=== PATIENT | female | born 1945 | race Caucasian/White ===

== ENCOUNTER 2020-03-08 09:31 | Inpatient (IN) | payer MEDICARE ==
--- NOTE | 2020-03-08 09:58 | ED ---
Abdominal Pain HPI - General Source: patient Mode of arrival: wheelchair Limitations: physical limitation <Aron Jesus - Last Filed: 03/08/20 12:08> <Maciel Fishman - Last Filed: 03/08/20 12:19> - General Chief Complaint: Abdominal Pain Stated Complaint: abd pain Time Seen by Provider: 03/08/20 09:57 - History of Present Illness Initial Comments: Patient is 74-year-old female with history of A. fib and currently on eliquist presenting to emergency Department with a chief complaint of abdominal pain. Patient reports the pain is postprandial and started about 2-3 days ago with gradual increase in severity. States the pain is sharp and is exacerbated with any movement. States the pain is located in the right upper quadrant region. She does report nausea but denies any vomiting. Does report several days of diarrhea that is nonbloody. She does report having chills today. Denies previous abdominal surgeries. Denies any vaginal or urinary symptoms. Denies hematuria, hematochezia or melena. Denies any chest pain or shortness of breath or back pain. (Aron Jesus) - Related Data Home Medications Medication Instructions Recorded Confirmed Apixaban [Eliquis] 5 mg PO BID 03/08/20 03/08/20 Aspirin 81 mg PO DAILY@1200 03/08/20 03/08/20 Metoprolol Succinate (ER) [Toprol 100 mg PO DAILY@1200 03/08/20 03/08/20 XL] Spironolactone [Aldactone] 25 mg PO DAILY@1200 03/08/20 03/08/20 lisinopriL [Zestril] 2.5 mg PO QAM 03/08/20 03/08/20 Allergies Allergy/AdvReac Type Severity Reaction Status Date / Time No Known Allergies Allergy Verified 03/08/20 12:13 Review of Systems ROS Other: All systems not noted in ROS Statement are negative. <Aron Jesus - Last Filed: 03/08/20 12:08> ROS Other: All systems not noted in ROS Statement are negative. <Maciel Fishman - Last Filed: 03/08/20 12:19> ROS Statement: Those systems with pertinent positive or pertinent negative responses have been documented in the HPI. Past Medical History Past Medical History: Atrial Fibrillation, Coronary Artery Disease (CAD), Hyperlipidemia, Hypertension, Myocardial Infarction ([place]) Additional Past Medical History / Comment(s): , murmur years ago, ulcerative colitis, dificulty swallowing large pills. History of Any Multi-Drug Resistant Organisms: None Reported Past Surgical History: Coronary Bypass/CABG, Tubal Ligation Past Anesthesia/Blood Transfusion Reactions: No Reported Reaction Past Psychological History: No Psychological Hx Reported Smoking Status: Never smoker Past Alcohol Use History: Occasional Past Drug Use History: None Reported - Past Family History Mother Family Medical History: Dementia Father Family Medical History: Myocardial Infarction ([place]) <Aron Jesus - Last Filed: 03/08/20 12:08> General Exam Limitations: physical limitation General appearance: alert, in no apparent distress Head exam: Present: atraumatic, normocephalic, normal inspection Eye exam: Present: normal appearance, PERRL, EOMI Pupils: Present: normal accommodation ENT exam: Present: normal exam, normal oropharynx, mucous membranes moist, TM's normal bilaterally, normal external ear exam Neck exam: Present: normal inspection, full ROM. Absent: tenderness Respiratory exam: Present: normal lung sounds bilaterally. Absent: respiratory distress, wheezes, rales Cardiovascular Exam: Present: regular rate, normal rhythm, normal heart sounds GI/Abdominal exam: Present: soft, tenderness (Positive Villaseñor. Right upper quadrant.), normal bowel sounds. Absent: distended, guarding, rebound, rigid Extremities exam: Present: normal inspection, full ROM, normal capillary refill, other (+2 ulnar and radial pulses bilaterally.). Absent: tenderness, pedal edema, joint swelling, calf tenderness Back exam: Present: normal inspection, full ROM. Absent: tenderness, CVA tenderness (R), CVA tenderness (L) Neurological exam: Present: alert, oriented X3 Psychiatric exam: Present: normal affect, normal mood. Absent: agitated Skin exam: Present: warm, dry, intact, normal color <Aron Jesus Last Filed: 03/08/20 12:08> Course Vital Signs 03/08/20 03/08/20 03/08/20 09:48 10:51 12:00 Temperature 102.4 F H 99.7 F H Pulse Rate 133 H 113 H 105 H Respiratory 18 16 16 Rate Blood Pressure 157/82 129/71 92/64 O2 Sat by Pulse 95 95 98 Oximetry Medical Decision Making - Lab Data Result diagrams: 03/08/20 10:14 03/08/20 10:14 <Aron Jesus - Last Filed: 03/08/20 12:08> - Lab Data Result diagrams: 03/08/20 10:14 03/08/20 10:14 <Maciel Fishman - Last Filed: 03/08/20 12:19> - Medical Decision Making Patient is a 74-year-old female presenting to the emergency department with a chief complaint of abdominal pain. Patient is currently on blood thinners for A. fib. On initial evaluation, patient does have right-sided abdominal tenderness mostly localized to the right upper quadrant region with a positive Villaseñor sign. She has been having postprandial pain for the past 2-3 days with gradual increasing severity. Clinically this appears to be acute cholecystitis. CBC reveals leukocytosis at 24k. EKG shows A. fib with RVR. Patient has not taken her morning dose of metoprolol. Patient will take it orally here. Patient was also given antipyretics, IV fluids, antiemetics and analgesia. Patient did have confirmed cholecystitis on ultrasound. Patient will be started on Zosyn and vancomycin. Blood thinners on hold. Dr. Kolton alonso admit to medicine and she will be on consult, as well as cardiology. Case discussed with Dr. Fishman. Admitting physician is Dr Lucian Salas on consult General surgery on consult (Aron Jesus) Patient reevaluated and reexamined by myself, Dr. Fishman. I do agree with the findings. This includes diagnostic interpretation and treatment plan. Patient resting comfortably in bed. Patient does have moderate tenderness right upper quadrant. Case was discussed with Dr. wallis. Case also discussed with Dr. Bergeron. Patient will be admitted, primary care physician Dr. Cisneros. Case was also later discussed with Dr. Segura. (Maciel Fishman) - Lab Data Lab Results 03/08/20 03/08/20 03/08/20 Range/Units 10:14 10:14 10:14 WBC 24.4 H (3.8-10.6) k/uL RBC 5.14 (3.80-5.40) m/uL Hgb 15.7 (11.4-16.0) gm/dL Hct 48.0 H (34.0-46.0) % MCV 93.4 (80.0-100.0) fL MCH 30.6 (25.0-35.0) pg MCHC 32.7 (31.0-37.0) g/dL RDW 11.8 (11.5-15.5) % Plt Count 340 (150-450) k/uL Neutrophils % 89 % Lymphocytes % 3 % Monocytes % 6 % Eosinophils % 1 % Basophils % 0 % Neutrophils # 21.7 H (1.3-7.7) k/uL Lymphocytes # 0.6 L (1.0-4.8) k/uL Monocytes # 1.5 H (0-1.0) k/uL Eosinophils # 0.4 (0-0.7) k/uL Basophils # 0.1 (0-0.2) k/uL Sodium 133 L (137-145) mmol/L Potassium 4.7 (3.5-5.1) mmol/L Chloride 97 L (98-107) mmol/L Carbon Dioxide 24 (22-30) mmol/L Anion Gap 12 mmol/L BUN 27 H (7-17) mg/dL Creatinine 0.71 (0.52-1.04) mg/dL Est GFR (CKD-EPI)AfAm >90 (>60 ml/min/1.73 sqM) Est GFR (CKD-EPI)NonAf 84 (>60 ml/min/1.73 sqM) Glucose 165 H (74-99) mg/dL Plasma Lactic Acid Ariel 1.9 (0.7-2.0) mmol/L Calcium 10.1 (8.4-10.2) mg/dL Total Bilirubin 1.3 (0.2-1.3) mg/dL AST 27 (14-36) U/L ALT 15 (4-34) U/L Alkaline Phosphatase 92 (38-126) U/L Troponin I (0.000-0.034) ng/mL Total Protein 8.5 H (6.3-8.2) g/dL Albumin 4.7 (3.5-5.0) g/dL Lipase 66 (23-300) U/L 10/10/20 Range/Units 10:14 WBC (3.8-10.6) k/uL RBC (3.80-5.40) m/uL Hgb (11.4-16.0) gm/dL Hct (34.0-46.0) % MCV (80.0-100.0) fL MCH (25.0-35.0) pg MCHC (31.0-37.0) g/dL RDW (11.5-15.5) % Plt Count (150-450) k/uL Neutrophils % % Lymphocytes % % Monocytes % % Eosinophils % % Basophils % % Neutrophils # (1.3-7.7) k/uL Lymphocytes # (1.0-4.8) k/uL Monocytes # (0-1.0) k/uL Eosinophils # (0-0.7) k/uL Basophils # (0-0.2) k/uL Sodium (137-145) mmol/L Potassium (3.5-5.1) mmol/L Chloride (98-107) mmol/L Carbon Dioxide (22-30) mmol/L Anion Gap mmol/L BUN (7-17) mg/dL Creatinine (0.52-1.04) mg/dL Est GFR (CKD-EPI)AfAm (>60 ml/min/1.73 sqM) Est GFR (CKD-EPI)NonAf (>60 ml/min/1.73 sqM) Glucose (74-99) mg/dL Plasma Lactic Acid Ariel (0.7-2.0) mmol/L Calcium (8.4-10.2) mg/dL Total Bilirubin (0.2-1.3) mg/dL AST (14-36) U/L ALT (4-34) U/L Alkaline Phosphatase (38-126) U/L Troponin I <0.012 (0.000-0.034) ng/mL Total Protein (6.3-8.2) g/dL Albumin (3.5-5.0) g/dL Lipase (23-300) U/L - EKG Data EKG Comments: A. fib with RVR. Ventricular rate 113, QRS 82, QTC 331. (Aron Jesus) Disposition Is patient prescribed a controlled substance at d/c from ED?: No Time of Disposition: 11:41 <Aron Jesus - Last Filed: 03/08/20 12:08> <Maciel Fishman - Last Filed: 03/08/20 12:19> Clinical Impression: Abdominal pain, Atrial fibrillation with RVR, Acute cholecystitis Disposition: ADMITTED IP TO THIS HOSP Condition: Good
[2020-03-08] MEDS ORDERED: HYDROmorphone 0.5 MG/0.5 ML SYRINGE IVP STA (10:07)
[2020-03-08] MEDS ORDERED: SODIUM CHLORIDE 0.9% 1,000 ML IV STA (10:07)
[2020-03-08] MEDS ORDERED: METOCLOPRAMIDE 5 MG/ML 2 ML VIAL IVP STA (10:07)
[2020-03-08] MEDS ORDERED: PANTOPRAZOLE 40 MG/10 ML VIAL IVP STA (10:07)
[2020-03-08] MEDS ORDERED: ACETAMINOPHEN TAB 500 MG TAB PO STA (10:08)
[2020-03-08 10:22] LABS: Basophils # (A) 0.1 k/uL (0-0.2); Basophils % (A) 0 %; Eosinophils # (A) 0.4 k/uL (0-0.7); Eosinophils % (A) 1 %; HGB 15.7 gm/dL (11.4-16.0); Lymphocytes # (A) 0.6 k/uL (1.0-4.8); Lymphocytes % (A) 3 %; MCH 30.6 pg (25.0-35.0); MCHC 32.7 g/dL (31.0-37.0); MCV 93.4 fL (80.0-100.0); Mean Platelet Volume 7.3; Monocytes # (A) 1.5 k/uL (0-1.0); Monocytes % (A) 6 %; Neutrophils # (A) 21.7 k/uL (1.3-7.7); Neutrophils % (A) 89 %; Platelet Count 340 k/uL (150-450); RBC 5.14 m/uL (3.80-5.40); RDW 11.8 % (11.5-15.5); WBC 24.4 k/uL (3.8-10.6)
[2020-03-08 10:32] LABS: ALT 15 U/L (4-34); AST 27 U/L (14-36); African American GFR (CKD) >90 (>60 ml/min/1.73 sqM); Albumin 4.7 g/dL (3.5-5.0); Alkaline Phosphatase 92 U/L (38-126); Anion Gap 12 mmol/L; Blood Urea Nitrogen 27 mg/dL (7-17); Calcium 10.1 mg/dL (8.4-10.2); Carbon Dioxide 24 mmol/L (22-30); Chloride 97 mmol/L (98-107); Glucose 165 mg/dL (74-99); Non-African American GFR(CKD) 84 (>60 ml/min/1.73 sqM); Potassium 4.7 mmol/L (3.5-5.1); Sodium 133 mmol/L (137-145); Total Bilirubin 1.3 mg/dL (0.2-1.3); Total Protein 8.5 g/dL (6.3-8.2)
--- NOTE | 2020-03-08 11:25 | US ---
EXAMINATION TYPE: US abdomen limited DATE OF EXAM: 03/08/2020 COMPARISON: NONE CLINICAL HISTORY: concern for acute fermín. EXAM MEASUREMENTS: Liver Length: 13.0 cm Gallbladder Wall: 0.4 cm CBD: 0.6 cm Right Kidney: 9.4 x 3.7 x 4.1 cm Pancreas: not visualized due to overlying bowel gas Liver: wnl Gallbladder: multiple layering stones with shadowing Evidence for sonographic Villaseñor's sign: Yes CBD: measures 0.6 cm Right Kidney: No hydronephrosis or masses seen IMPRESSION: 1. Cholelithiasis with mild gallbladder wall thickening, correlate for cholecystitis. Note is made to CBD does measure at the upper limits of normal. Correlate clinically.
[2020-03-08] MEDS ORDERED: VANCOMYCIN IV PER PHARMACY 1 EACH MISC MISCELLANE PRN (11:37)
[2020-03-08] MEDS ORDERED: PIPERACILLIN-TAZOBACTAM 3.375 GM in SODIUM CHLORIDE 0.9% 100 ML IVPB STA (11:37)
[2020-03-08] MEDS ORDERED: HYDROmorphone 1 MG/ML 1 ML SYRINGE IVP PRN (11:50)
[2020-03-08] MEDS ORDERED: NALOXONE 0.4 MG/ML 1 ML VIAL IV PRN (11:50)
[2020-03-08] MEDS ORDERED: LORazepam 2 MG/ML INJ IV PRN (11:50)
[2020-03-08] MEDS ORDERED: ACETAMINOPHEN TAB 325 MG TAB PO PRN (11:50)
[2020-03-08] MEDS ORDERED: IBUPROFEN 400 MG TAB PO PRN (11:50)
[2020-03-08] MEDS ORDERED: VANCOMYCIN 1,250 MG in SODIUM CHLORIDE 0.9% 250 ML IVPB ONE (12:00)
--- NOTE | 2020-03-08 12:09 | P.PN ---
Progress Note - Text Progress Note Date: 03/08/20 Notified regarding the patient's results of ultrasound. I personally reviewed her gallbladder ultrasound with findings of multiple gallstones and mild thickness of the gallbladder wall. With the patient's significant cardiac history of congestive heart failure and cardiomyopathy, recommend medicine admission with cardiology consultation for cardiac clearance prior to any surgery. In the interim, bridge with IV antibiotics.
[2020-03-08] MEDS: SODIUM CHLORIDE 0.9% 1,000 ML IV SCH ×2 (12:40→20:53)
--- NOTE | 2020-03-08 12:47 | P.CRDCN ---
History of Present Illness Consult date: 03/08/20 Consult reason: atrial fibrillation (w RVR) History of present illness: History of present illness: This is A 74-year-old female patient of Dr. ITZEL Champion with past medical history of triple-vessel coronary artery disease status post quadruple CABG in 2016, moderate mitral valve regurgitation, mild aortic stenosis, chronic systolic heart failure, non-Q [place], Paroxysmal atrial fibrillation, Hypertension, hyperlipidemia,right internal carotid artery stenosis of 50-69%, remote history of tobacco use. Patient had onset of right upper quadrant abdominal pain with nausea 2 days ago. She denies any chest pain or discomfort, denies shortness of breath. Patient presented to [facility] emergency center. Patient was found to have a temperature of 102.4, heart rate 133, blood pressure 157/82, p ulse ox 95% on room air. W BC 24.4, hemoglobin 15.7, platelet count 340. Sodium 133, potassium 4.7, chloride 97, CO2 24, BUN 27 creatinine 0.71, blood sugar 165. Lactic acid 1.9. Liver function tests normal. Troponin 0.012. EKG atrial fibrillation with RVR at rate of 113. Abdominal ultrasound reveals cholelithiasis with mild gallbladder wall thickening, correlate for cholecystitis. CBD at the upper limits of normal. Patient admitted to the hospital and consult requested regarding atrial fibrillation and RVR. Review Of Systems: Constitutional: No fever, no chills. No weakness, fatigue or lethargy. EENT: No headache. No dizziness. Lungs: No shortness of breath, cough, no sputum production. No wheezing. Cardiovascular: No chest pain, no lower extremity edema. No palpitations. No paroxysmal nocturnal dyspnea. No orthopnea. No lightheadedness or dizziness. No syncopal episodes. Abdominal: Reports abdominal pain. Reports nausea, vomiting. No diarrhea. No constipation. No bloody or tarry stools.. No loss of appetite. Genitourinary: No dysuria.. No urinary retention. Musculoskeletal: No myalgias. No muscle weakness, no gait dysfunction, no fr equent falls. No back pain. No neck pain. Integumentary: No wounds, no lesions. No rash or pruritus. No unusual bruising. Neurologic: No aphasia. No facial droop. No change in mentation. No head injury. No headache. No paralysis. No paresthesia. Physical examination: Gen: This is a 74-year-old female. Patient is resting bed appears to be comfortable. VS: 99.7, heart rate 105,Blood pressure 92/64, pulse ox 98% on room air HEENT: Head is atraumatic, normocephalic. Pupils equal, round. Sclerae is anicteric. NECK: Supple. No JVD. No lymphadenopathy. No thyromegaly. LUNGS: Clear to auscultation. No wheezes or rhonchi. No intercostal retractions. HEART: Regular rate and rhythm. No murmur. ABDOMEN: Soft. Bowel sounds are present. No masses. No tenderness. EXTREMITIES: No pedal edema. No calf tenderness. Dorsalis pedis +2 bilaterally. NEUROLOGICAL: Patient is awake, alert and oriented x3. Cranial nerves 2 through 12 are grossly intact. Assessment: Atrial fibrillation with RVR, moderate rate control Paroxysmal atrial fibrillation History of coronary artery disease status post quadruple CABG Valvular heart disease with moderate mitral valve regurgitation and mild aortic stenosis Chronic systolic heart failure Hypertension Hyperlipidemia Right internal carotid artery stenosis Remote history of tobacco use Plan: Patient is a reasonable risk for cardiac event during surgery. She has had for months with no exercise induced angina or shortness of breath. Would like to get her heart rate under improved control prior to surgery. Resume patient on Toprol-XL 100 mg daily Resume Aspirin 81 mg. Hold lisinopril 2.5 mg daily and Aldactone 25 daily due to soft blood pressure Hold eliquis 5 mg twice daily for cholecystectomy Obtain 2-D echocardiogram and Doppler study to assess cardiac structure and function Further recommendations to follow based upon clinical course Thank you kindly for this consultation. Nurse practitioner note has been reviewed, I agree with documented findings and plan of care. Patient was seen and examined. Past Medical History Past Medical History: Atrial Fibrillation, Coronary Artery Disease (CAD), Hyperlipidemia, Hypertension, Myocardial Infarction ([place]) Additional Past Medical History / Comment(s): , murmur years ago, ulcerative colitis, dificulty swallowing large pills. History of Any Multi-Drug Resistant Organisms: None Reported Past Surgical History: Coronary Bypass/CABG, Tubal Ligation Past Anesthesia/Blood Transfusion Reactions: No Reported Reaction Past Psychological History: No Psychological Hx Reported Smoking Status: Never smoker Past Alcohol Use History: Occasional Past Drug Use History: None Reported - Past Family History Mother Family Medical History: Dementia Father Family Medical History: Myocardial Infarction ([place]) Medications and Allergies Home Medications Medication Instructions Recorded Confirmed Type Apixaban [Eliquis] 5 mg PO BID 03/08/20 03/08/20 History Aspirin 81 mg PO DAILY@1200 03/08/20 03/08/20 History Metoprolol Succinate (ER) [Toprol 100 mg PO DAILY@1200 03/08/20 03/08/20 History XL] Spironolactone [Aldactone] 25 mg PO DAILY@1200 03/08/20 03/08/20 History lisinopriL [Zestril] 2.5 mg PO QAM 03/08/20 03/08/20 History Allergies Allergy/AdvReac Type Severity Reaction Status Date / Time No Known Allergies Allergy Verified 03/08/20 12:13 Physical Exam Vitals: Vital Signs Temp Pulse Resp BP Pulse Ox 03/08/20 12:00 99.7 F H 105 H 16 92/64 98 03/08/20 10:51 113 H 16 129/71 95 03/08/20 09:48 102.4 F H 133 H 18 157/82 95 Intake and Output 03/07/20 03/08/20 03/08/20 22:59 06:59 14:59 Other: Weight 61.235 kg Results 03/08/20 10:14 03/08/20 10:14 Cardiac Enzymes 03/08/20 03/08/20 Range/Units 10:14 10:14 AST 27 (14-36) U/L Troponin I <0.012 (0.000-0.034) ng/mL CBC 03/08/20 Range/Units 10:14 WBC 24.4 H (3.8-10.6) k/uL RBC 5.14 (3.80-5.40) m/uL Hgb 15.7 (11.4-16.0) gm/dL Hct 48.0 H (34.0-46.0) % Plt Count 340 (150-450) k/uL Comprehensive Metabolic Panel 03/08/20 Range/Units 10:14 Sodium 133 L (137-145) mmol/L Potassium 4.7 (3.5-5.1) mmol/L Chloride 97 L (98-107) mmol/L Carbon Dioxide 24 (22-30) mmol/L BUN 27 H (7-17) mg/dL Creatinine 0.71 (0.52-1.04) mg/dL Glucose 165 H (74-99) mg/dL Calcium 10.1 (8.4-10.2) mg/dL AST 27 (14-36) U/L ALT 15 (4-34) U/L Alkaline Phosphatase 92 (38-126) U/L Total Protein 8.5 H (6.3-8.2) g/dL Albumin 4.7 (3.5-5.0) g/dL Current Medications Generic Name Dose Route Start Last Admin Trade Name Freq PRN Reason Stop Dose Admin Acetaminophen 650 mg 03/08/20 11:50 Acetaminophen Tab 325 Mg Tab PO Q6HR PRN Mild Pain or Fever > 100.5 Hydromorphone HCl 0.5 mg 03/08/20 11:50 Hydromorphone 0.5 Mg/0.5 Ml Syringe IVP Q3HR PRN Moderate Pain Hydromorphone HCl 1 mg 03/08/20 11:50 Hydromorphone 1 Mg/Ml 1 Ml Syringe IVP Q3HR PRN Severe Pain Sodium Chloride 1,000 mls @ 130 mls/hr 03/08/20 10:07 03/08/20 10:38 Saline 0.9% IV 03/08/20 17:48 130 mls/hr .[id number] STA Administration Vancomycin HCl 1,250 mg/ 250 mls @ 125 mls/hr 03/08/20 12:00 03/08/20 12:16 Sodium Chloride IVPB 03/08/20 13:59 125 mls/hr ONCE ONE Administration Vancomycin HCl 1,250 mg/ 250 mls @ 125 mls/hr 03/09/20 02:00 Sodium Chloride IVPB Q16H [place] Sodium Chloride 1,000 mls @ 20 mls/hr 03/08/20 12:00 Saline 0.9% IV .Q24H [place] Ibuprofen 400 mg 03/08/20 11:50 Ibuprofen 400 Mg Tab PO Q6HR PRN Mild Pain or Fever > 100.5 Lorazepam 0.5 mg 03/08/20 11:50 Lorazepam 2 Mg/Ml Inj IV Q6HR PRN Anxiety Naloxone HCl 0.2 mg 03/08/20 11:50 Naloxone 0.4 Mg/Ml 1 Ml Vial IV Q2M PRN Opioid Reversal Ondansetron HCl 4 mg 03/08/20 11:50 Ondansetron 4 Mg/2 Ml Vial IVP Q8HR PRN Nausea And Vomiting Intake and Output 03/07/20 03/08/20 03/08/20 22:59 06:59 14:59 Other: Weight 61.235 kg Patient Weight 03/09/20 06:59 Weight 61.235 kg 03/08/20 10:14 03/08/20 10:14
[2020-03-08] MEDS: METOPROLOL SUCCINATE (ER) 100 MG TAB.ER.24H PO SCH (13:01)
[2020-03-08] MEDS: HYDROmorphone 0.5 MG/0.5 ML SYRINGE IVP PRN (15:18)
--- NOTE | 2020-03-08 15:21 | P.GSCN ---
History of Present Illness Consult date: 03/08/20 History of present illness: CHIEF COMPLAINT: Right upper quadrant abdominal pain HISTORY OF PRESENT ILLNESS: The patient is a 74 year old female who comes in with 1 day history of moderate right quadrant abdominal pain after eating ice cream last night. She reports persistent right upper back pain. She reports pre-existing bilateral upper abdominal pain including moderate severe right upper back pain. She has a strong family history of gallbladder disease in her sister including her sister's daughter. She is otherwise very active and on stationary bike at least 15-20 minutes daily. She is on blood thinner Eliquis. Her last dose was yesterday. She denies any pre-existing abdominal surgeries. PAST MEDICAL HISTORY: See list and reviewed. Has ulcerative colitis. History of myocardial infarction. PAST SURGICAL HISTORY: See list and reviewed MEDICATIONS: See list and reviewed ALLERGIES: See list and reviewed SOCIAL HISTORY: See list and reviewed FAMILY HISTORY: See list and reviewed REVIEW OF ORGAN SYSTEMS: CONSTITUTIONAL: No fevers or chills. No recent weight loss. EYES: Denies any trouble with vision. No glasses. HEENT: No difficulties with hearing. No nosebleeds. Has difficulty swallowing. RESPIRATORY: Denies pneumonia. Denies any troubles with breathing or dyspnea on exertion. CARDIOVASCULAR: Past chest pain, palpitations, and recent heart attacks. History of CABG. History of atrial fibrillation. History of heart murmur. GASTROINTESTINAL: Denies fatty food intolerance. History of ulcerative colitis. GENITOURINARY: Denies any blood in urine or increased urinary frequency. History of tubal ligation. NEUROLOGICAL: Denies any numbness or tingling along the distal extremities. No seizure disorders or headaches. MUSCULOSKELETAL: Has back pain, stiffness or joint arthritis. SKIN: No current skin cancer. No rash. PSYCHIATRIC: Denies current depression or suicidal thoughts. ENDOCRINE: Denies current thyroid disorders. Denies any blood sugar glucose intolerance. HEME/LYMPHATIC: Denies any lumps and bumps around the neck. No recent deep venous thrombosis. ALLERGY/IMMUNOLOGY: No immunoglobulin therapy. No immune deficiencies. BREAST: Denies current breast lumps, pain or nipple discharge. PHYSICAL EXAM: VITALS: Reviewed CONSTITUTIONAL: Well developed and in no acute distress. EYES: Conjuctivae without sclera icterus. Pupils are equally round and reactive to light. Extraocular movements grossly intact. HEAD, EARS, NOSE, THROAT: Moist buccal mucosa. Head is atraumatic, normocephalic. Hears conversational speech. No nasal drainage. NECK: No JV distention. No thyroidomegaly. RESPIRATORY: Non-labored respirations and equal bilateral excursions. No gross wheezes. CARDIOVASCULAR: Extremities without moderate edema. Palpable 2+ radial pulses. ABDOMEN: Soft. Tender along the right upper quadrant. No peritonitis. MUSCULOSKELETAL: Nail and fingers with good capillary refill. SKIN: Warm and well perfused with good skin turgor. NEUROLOGIC: Cranial nerves II through XII grossly intact. Sensation upper and extremities intact. No focal or lateralizing signs. PSYCH: Appropriate affect. Alert and oriented to person, place and time. Displays appropriate insight. CLINCAL LABS: Reviewed. WBC elevated over 24,000. Urinalysis moderate blood. IMAGING: Independently reviewed ultrasound of the gallbladder demonstrated multiple gallstones, thickened gallbladder wall 0.4 cm. RADIOLOGY: Report reviewed also confirms mildly dilated common bile duct dilatation EKG: Shows abnormal EKG with previous infarcts including age fibrillation. ASSESSMENT: 1. Acute cholecystitis 2. Atrial fibrillation 3. History of myocardial infarction 4. Chronic anticoagulation PLAN: 1. Recommend full cardiac risk assessment with pre-existing cardiomyopathy. Need to hold blood thinner. 2. Earliest surgical intervention pending at least 48 to 72 hours after last dose of blood thinner. 3. In the interim, liquid diet, fat free. 4. All questions were addressed. 5. Continue home medications for atrial fibrillation Past Medical History Past Medical History: Atrial Fibrillation, Coronary Artery Disease (CAD), Hyperlipidemia, Hypertension, Myocardial Infarction ([place]) Additional Past Medical History / Comment(s): , murmur years ago, ulcerative colitis, dificulty swallowing large pills. Last Myocardial Infarction Date:: 2015 History of Any Multi-Drug Resistant Organisms: None Reported Past Surgical History: Coronary Bypass/CABG, Tubal Ligation Past Anesthesia/Blood Transfusion Reactions: No Reported Reaction Past Psychological History: No Psychological Hx Reported Smoking Status: Never smoker Past Alcohol Use History: Occasional Past Drug Use History: None Reported - Past Family History Mother Family Medical History: Dementia Father Family Medical History: Myocardial Infarction ([place]) Medications and Allergies Home Medications Medication Instructions Recorded Confirmed Type Apixaban [Eliquis] 5 mg PO BID 03/08/20 03/08/20 History Aspirin 81 mg PO DAILY@1200 03/08/20 03/08/20 History Metoprolol Succinate (ER) [Toprol 100 mg PO DAILY@1200 03/08/20 03/08/20 History XL] Spironolactone [Aldactone] 25 mg PO DAILY@1200 03/08/20 03/08/20 History lisinopriL [Zestril] 2.5 mg PO QAM 03/08/20 03/08/20 History Allergies Allergy/AdvReac Type Severity Reaction Status Date / Time No Known Allergies Allergy Verified 03/08/20 12:13 Surgical - Exam Vital Signs Temp Pulse Resp BP Pulse Ox 102.4 F H 133 H 18 157/82 95 03/08/20 09:48 03/08/20 09:48 03/08/20 09:48 03/08/20 09:48 03/08/20 09:48 Results - Labs 03/08/20 10:14 03/08/20 10:14 Abnormal Lab Results - Last 24 Hours (Table) 03/08/20 03/08/20 Range/Units 10:14 10:14 WBC 24.4 H (3.8-10.6) k/uL Hct 48.0 H (34.0-46.0) % Neutrophils # 21.7 H (1.3-7.7) k/uL Lymphocytes # 0.6 L (1.0-4.8) k/uL Monocytes # 1.5 H (0-1.0) k/uL Sodium 133 L (137-145) mmol/L Chloride 97 L (98-107) mmol/L BUN 27 H (7-17) mg/dL Glucose 165 H (74-99) mg/dL Total Protein 8.5 H (6.3-8.2) g/dL Diabetes panel 03/08/20 Range/Units 10:14 Sodium 133 L (137-145) mmol/L Potassium 4.7 (3.5-5.1) mmol/L Chloride 97 L (98-107) mmol/L Carbon Dioxide 24 (22-30) mmol/L BUN 27 H (7-17) mg/dL Creatinine 0.71 (0.52-1.04) mg/dL Glucose 165 H (74-99) mg/dL Calcium 10.1 (8.4-10.2) mg/dL AST 27 (14-36) U/L ALT 15 (4-34) U/L Alkaline Phosphatase 92 (38-126) U/L Total Protein 8.5 H (6.3-8.2) g/dL Albumin 4.7 (3.5-5.0) g/dL Calcium panel 03/08/20 Range/Units 10:14 Calcium 10.1 (8.4-10.2) mg/dL Albumin 4.7 (3.5-5.0) g/dL Pituitary panel 03/08/20 Range/Units 10:14 Sodium 133 L (137-145) mmol/L Potassium 4.7 (3.5-5.1) mmol/L Chloride 97 L (98-107) mmol/L Carbon Dioxide 24 (22-30) mmol/L BUN 27 H (7-17) mg/dL Creatinine 0.71 (0.52-1.04) mg/dL Glucose 165 H (74-99) mg/dL Calcium 10.1 (8.4-10.2) mg/dL Adrenal panel 03/08/20 Range/Units 10:14 Sodium 133 L (137-145) mmol/L Potassium 4.7 (3.5-5.1) mmol/L Chloride 97 L (98-107) mmol/L Carbon Dioxide 24 (22-30) mmol/L BUN 27 H (7-17) mg/dL Creatinine 0.71 (0.52-1.04) mg/dL Glucose 165 H (74-99) mg/dL Calcium 10.1 (8.4-10.2) mg/dL Total Bilirubin 1.3 (0.2-1.3) mg/dL AST 27 (14-36) U/L ALT 15 (4-34) U/L Alkaline Phosphatase 92 (38-126) U/L Total Protein 8.5 H (6.3-8.2) g/dL Albumin 4.7 (3.5-5.0) g/dL
[2020-03-08 15:22] LABS: Appearance,Urine Turbid (Clear); Bilirubin,Urine Negative (Negative); Blood,Urine Moderate (Negative); Color,Urine Yellow; Glucose,Urine (UA) Negative (Negative); Hyaline Casts,Urine 1 /lpf (0-2); Ketones,Urine 1+ (Negative); Leukocyte Esterase,Urine Negative (Negative); Mucus,Urine Few /hpf; Nitrite,Urine Negative (Negative); PH, Urine 5.5 (5.0-8.0); Protein,Urine 1+ (Negative); RBC,Urine 8 /hpf (0-5); Specific Gravity,Urine 1.035 (1.001-1.035); Squamous Epithelial Cell,Urine 1 /hpf (0-4); Urobilinogen,Urine <2.0 mg/dL (<2.0); WBC,Urine 1 /hpf (0-5)
[2020-03-08] MEDS: ONDANSETRON 4 MG/2 ML VIAL IVP PRN (16:11)
[2020-03-08] MEDS: metroNIDAZOLE-NS PMX 500 MG in SALINE 1 100ML.BAG IVPB SCH ×2 (19:34→23:10)
[2020-03-08] MEDS: PIPERACILLIN-TAZOBACTAM 3.375 GM in SODIUM CHLORIDE 0.9% 100 ML IVPB SCH (19:34)
--- NOTE | 2020-03-08 19:45 | P.GSHP ---
History of Present Illness H&P Date: 03/08/20 CHIEF COMPLAINT: Right upper quadrant abdominal pain HISTORY OF PRESENT ILLNESS: The patient is a 74 year old female who comes in with 1 day history of moderate right quadrant abdominal pain after eating ice cream last night. She reports persistent right upper back pain. She reports pre-existing bilateral upper abdominal pain including moderate severe right upper back pain. She has a strong family history of gallbladder disease in her sister including her sister's daughter. She is otherwise very active and on stationary bike at least 15-20 minutes daily. She is on blood thinner Eliquis. Her last dose was yesterday. She denies any pre-existing abdominal surgeries. PAST MEDICAL HISTORY: See list and reviewed. Has ulcerative colitis. History of myocardial infarction. PAST SURGICAL HISTORY: See list and reviewed MEDICATIONS: See list and reviewed ALLERGIES: See list and reviewed SOCIAL HISTORY: See list and reviewed FAMILY HISTORY: See list and reviewed REVIEW OF ORGAN SYSTEMS: CONSTITUTIONAL: No fevers or chills. No recent weight loss. EYES: Denies any trouble with vision. No glasses. HEENT: No difficulties with hearing. No nosebleeds. Has difficulty swallowing. RESPIRATORY: Denies pneumonia. Denies any troubles with breathing or dyspnea on exertion. CARDIOVASCULAR: Past chest pain, palpitations, and recent heart attacks. History of CABG. History of atrial fibrillation. History of heart murmur. GASTROINTESTINAL: Denies fatty food intolerance. History of ulcerative colitis. GENITOURINARY: Denies any blood in urine or increased urinary frequency. History of tubal ligation. NEUROLOGICAL: Denies any numbness or tingling along the distal extremities. No seizure disorders or headaches. MUSCULOSKELETAL: Has back pain, stiffness or joint arthritis. SKIN: No current skin cancer. No rash. PSYCHIATRIC: Denies current depression or suicidal thoughts. ENDOCRINE: Denies current thyroid disorders. Denies any blood sugar glucose intolerance. HEME/LYMPHATIC: Denies any lumps and bumps around the neck. No recent deep venous thrombosis. ALLERGY/IMMUNOLOGY: No immunoglobulin therapy. No immune deficiencies. BREAST: Denies current breast lumps, pain or nipple discharge. PHYSICAL EXAM: VITALS: Reviewed CONSTITUTIONAL: Well developed and in no acute distress. EYES: Conjuctivae without sclera icterus. Pupils are equally round and reactive to light. Extraocular movements grossly intact. HEAD, EARS, NOSE, THROAT: Moist buccal mucosa. Head is atraumatic, normocephalic. Hears conversational speech. No nasal drainage. NECK: No JV distention. No thyroidomegaly. RESPIRATORY: Non-labored respirations and equal bilateral excursions. No gross wheezes. CARDIOVASCULAR: Extremities without moderate edema. Palpable 2+ radial pulses. ABDOMEN: Soft. Tender along the right upper quadrant. No peritonitis. MUSCULOSKELETAL: Nail and fingers with good capillary refill. SKIN: Warm and well perfused with good skin turgor. NEUROLOGIC: Cranial nerves II through XII grossly intact. Sensation upper and extremities intact. No focal or lateralizing signs. PSYCH: Appropriate affect. Alert and oriented to person, place and time. Displays appropriate insight. CLINCAL LABS: Reviewed. WBC elevated over 24,000. Urinalysis moderate blood. IMAGING: Independently reviewed ultrasound of the gallbladder demonstrated multiple gallstones, thickened gallbladder wall 0.4 cm. RADIOLOGY: Report reviewed also confirms mildly dilated common bile duct dilatation EKG: Shows abnormal EKG with previous infarcts including age fibrillation. ASSESSMENT: 1. Acute cholecystitis 2. Atrial fibrillation 3. History of myocardial infarction 4. Chronic anticoagulation PLAN: 1. Recommend full cardiac risk assessment with pre-existing cardiomyopathy. Need to hold blood thinner. 2. Earliest surgical intervention pending at least 48 to 72 hours after last dose of blood thinner. 3. In the interim, liquid diet, fat free. 4. All questions were addressed. 5. Continue home medications for atrial fibrillation Past Medical History Past Medical History: Atrial Fibrillation, Coronary Artery Disease (CAD), Hyperlipidemia, Hypertension, Myocardial Infarction ([place]) Additional Past Medical History / Comment(s): , murmur years ago, ulcerative colitis, dificulty swallowing large pills. Last Myocardial Infarction Date:: 2015 History of Any Multi-Drug Resistant Organisms: None Reported Past Surgical History: Coronary Bypass/CABG, Tubal Ligation Past Anesthesia/Blood Transfusion Reactions: No Reported Reaction Past Psychological History: No Psychological Hx Reported Smoking Status: Never smoker Past Alcohol Use History: Occasional Past Drug Use History: None Reported - Past Family History Mother Family Medical History: Dementia Father Family Medical History: Myocardial Infarction ([place]) Medications and Allergies Home Medications Medication Instructions Recorded Confirmed Type Apixaban [Eliquis] 5 mg PO BID 03/08/20 03/08/20 History Aspirin 81 mg PO DAILY@1200 03/08/20 03/08/20 History Metoprolol Succinate (ER) [Toprol 100 mg PO DAILY@1200 03/08/20 03/08/20 History XL] Spironolactone [Aldactone] 25 mg PO DAILY@1200 03/08/20 03/08/20 History lisinopriL [Zestril] 2.5 mg PO QAM 03/08/20 03/08/20 History Allergies Allergy/AdvReac Type Severity Reaction Status Date / Time No Known Allergies Allergy Verified 03/08/20 12:13 Surgical - Exam Vital Signs Temp Pulse Resp BP Pulse Ox 102.4 F H 133 H 18 157/82 95 03/08/20 09:48 03/08/20 09:48 03/08/20 09:48 03/08/20 09:48 03/08/20 09:48 Results - Labs 03/08/20 10:14 03/08/20 10:14 Abnormal Lab Results - Last 24 Hours (Table) 03/08/20 03/08/20 03/08/20 Range/Units 10:14 10:14 14:50 WBC 24.4 H (3.8-10.6) k/uL Hct 48.0 H (34.0-46.0) % Neutrophils # 21.7 H (1.3-7.7) k/uL Lymphocytes # 0.6 L (1.0-4.8) k/uL Monocytes # 1.5 H (0-1.0) k/uL Sodium 133 L (137-145) mmol/L Chloride 97 L (98-107) mmol/L BUN 27 H (7-17) mg/dL Glucose 165 H (74-99) mg/dL Total Protein 8.5 H (6.3-8.2) g/dL Urine Appearance Turbid H (Clear) Urine Protein 1+ H (Negative) Urine Ketones 1+ H (Negative) Urine Blood Moderate H (Negative) Urine RBC 8 H (0-5) /hpf Urine Mucus Few H (None) /hpf Diabetes panel 03/08/20 Range/Units 10:14 Sodium 133 L (137-145) mmol/L Potassium 4.7 (3.5-5.1) mmol/L Chloride 97 L (98-107) mmol/L Carbon Dioxide 24 (22-30) mmol/L BUN 27 H (7-17) mg/dL Creatinine 0.71 (0.52-1.04) mg/dL Glucose 165 H (74-99) mg/dL Calcium 10.1 (8.4-10.2) mg/dL AST 27 (14-36) U/L ALT 15 (4-34) U/L Alkaline Phosphatase 92 (38-126) U/L Total Protein 8.5 H (6.3-8.2) g/dL Albumin 4.7 (3.5-5.0) g/dL Calcium panel 03/08/20 Range/Units 10:14 Calcium 10.1 (8.4-10.2) mg/dL Albumin 4.7 (3.5-5.0) g/dL Pituitary panel 03/08/20 Range/Units 10:14 Sodium 133 L (137-145) mmol/L Potassium 4.7 (3.5-5.1) mmol/L Chloride 97 L (98-107) mmol/L Carbon Dioxide 24 (22-30) mmol/L BUN 27 H (7-17) mg/dL Creatinine 0.71 (0.52-1.04) mg/dL Glucose 165 H (74-99) mg/dL Calcium 10.1 (8.4-10.2) mg/dL Adrenal panel 03/08/20 Range/Units 10:14 Sodium 133 L (137-145) mmol/L Potassium 4.7 (3.5-5.1) mmol/L Chloride 97 L (98-107) mmol/L Carbon Dioxide 24 (22-30) mmol/L BUN 27 H (7-17) mg/dL Creatinine 0.71 (0.52-1.04) mg/dL Glucose 165 H (74-99) mg/dL Calcium 10.1 (8.4-10.2) mg/dL Total Bilirubin 1.3 (0.2-1.3) mg/dL AST 27 (14-36) U/L ALT 15 (4-34) U/L Alkaline Phosphatase 92 (38-126) U/L Total Protein 8.5 H (6.3-8.2) g/dL Albumin 4.7 (3.5-5.0) g/dL
[2020-03-08] MEDS: ACETAMINOPHEN IV (For NPO) 650 MG in EMPTY BAG 1 BAG IVPB SCH (20:53)
[2020-03-09] MEDS ORDERED: VANCOMYCIN 1,250 MG in SODIUM CHLORIDE 0.9% 250 ML IVPB SCH (02:00)
[2020-03-09] MEDS: ACETAMINOPHEN IV (For NPO) 650 MG in EMPTY BAG 1 BAG IVPB SCH ×3 (02:16→16:11)
[2020-03-09] MEDS: PIPERACILLIN-TAZOBACTAM 3.375 GM in SODIUM CHLORIDE 0.9% 100 ML IVPB SCH ×3 (05:00→20:13)
[2020-03-09] MEDS: metroNIDAZOLE-NS PMX 500 MG in SALINE 1 100ML.BAG IVPB SCH ×4 (05:01→23:09)
[2020-03-09] MEDS: SODIUM CHLORIDE 0.9% 1,000 ML IV SCH ×2 (09:24→11:29)
[2020-03-09 11:44] LABS: Basophils % (A) 0 %; Eosinophils # (A) 0.1 k/uL (0-0.7); Eosinophils % (A) 0 %; HCT 39.4 % (34.0-46.0); Lymphocytes % (A) 5 %; MCH 30.9 pg (25.0-35.0); MCHC 32.2 g/dL (31.0-37.0); Mean Platelet Volume 7.8; Monocytes % (A) 5 %; Neutrophils # (A) 18.7 k/uL (1.3-7.7); Neutrophils % (A) 89 %; Platelet Count 245 k/uL (150-450)
[2020-03-09 11:51] LABS: ALT 12 U/L (4-34); AST 18 U/L (14-36); African American GFR (CKD) 85 (>60 ml/min/1.73 sqM); Albumin 3.2 g/dL (3.5-5.0); Albumin/Globulin Ratio 1.2; Alkaline Phosphatase 65 U/L (38-126); Anion Gap 4 mmol/L; Blood Urea Nitrogen 28 mg/dL (7-17); Calcium 8.6 mg/dL (8.4-10.2); Carbon Dioxide 27 mmol/L (22-30); Chloride 102 mmol/L (98-107); Globulin 2.6 g/dL; Glucose 118 mg/dL (74-99); Non-African American GFR(CKD) 74 (>60 ml/min/1.73 sqM); Potassium 4.1 mmol/L (3.5-5.1); Sodium 133 mmol/L (137-145); Total Bilirubin 1.4 mg/dL (0.2-1.3); Total Protein 5.8 g/dL (6.3-8.2)
[2020-03-09 11:54] LABS: HGB 12.7 gm/dL (11.4-16.0)
[2020-03-09] MEDS: ASPIRIN 81 MG PO SCH (12:04)
[2020-03-09] MEDS: METOPROLOL SUCCINATE (ER) 100 MG TAB.ER.24H PO SCH (12:04)
[2020-03-09] MEDS: HYDROmorphone 0.5 MG/0.5 ML SYRINGE IVP PRN ×2 (12:06→23:09)
[2020-03-09] MEDS ORDERED: METOPROLOL SUCCINATE (ER) 50 MG TAB.ER.24H PO STA (16:54)
--- NOTE | 2020-03-09 16:58 | P.PN ---
Subjective Progress Note Date: 03/09/20 This is A 74-year-old female patient of Dr. ITZEL Champion with past medical history of triple-vessel coronary artery disease status post quadruple CABG in 2016, moderate mitral valve regurgitation, mild aortic stenosis, chronic systolic heart failure, non-Q MD, Paroxysmal atrial fibrillation, Hypertension, hyperlipidemia,right internal carotid artery stenosis of 50-69%, remote history of tobacco use. Patient had onset of right upper quadrant abdominal pain with nausea 2 days ago. She denies any chest pain or discomfort, denies shortness of breath. Patient presented to [facility] emergency center. Patient was found to have a temperature of 102.4, heart rate 133, blood pressure 157/82, pulse ox 95% on room air. W BC 24.4, hemoglobin 15.7, platelet count 340. Sodium 133, potassium 4.7, chloride 97, CO2 24, BUN 27 creatinine 0.71, blood sugar 165. Lactic acid 1.9. Liver function tests normal. Troponin 0.012. EKG atrial fibrillation with RVR at rate of 113. Abdominal ultrasound reveals cholelithiasis with mild gallbladder wall thickening, correlate for cholecystitis. CBD at the upper limits of normal. Patient admitted to the hospital and consult requested regarding atrial fibrillation and RVR. 03/09/2020 Patient seen and examined. Patient with heart rates in the 80s to low 100s. Afebrile over last 24 hours. She denies any chest pain or shortness breath. the echo report was not transferred over from the reading station however personally reviewed with ejection fraction 50-55%, moderately dilated left atrium, moderate aortic stenosis, mitral annular calcification, moderate mitral regurgitation, moderate to severe tricuspid regurgitation with RVSP of 51. she is somewhat tearful on exam and states she is depressed. patient has been off of telemetry and we have asked for patient to be placed on telemetry. Physical examination: Gen: This is a 74-year-old female. Patient is resting bed appears to be comfortable. VS: 98.6, heart rate 106,Blood pressure 112/68, pulse ox 90% on room air HEENT: Head is atraumatic, normocephalic. Pupils equal, round. Sclerae is anicteric. NECK: Supple. No JVD. No lymphadenopathy. No thyromegaly. LUNGS: Clear to auscultation. No wheezes or rhonchi. No intercostal retracti ons. HEART: irregularly irregular rate and rhythm. +3/6 systolic murmur. ABDOMEN: Soft. Bowel sounds are present. No masses. No tenderness. EXTREMITIES: No pedal edema. No calf tenderness. Dorsalis pedis +2 bilaterally. NEUROLOGICAL: Patient is awake, alert and oriented x3. Cranial nerves 2 through 12 are grossly intact. Assessment: Atrial fibrillation with predominantly controlled rates and occasional tachycardia. Paroxysmal atrial fibrillation History of coronary artery disease status post quadruple CABG moderate aortic stenosis by echo 03/08/2020 moderate to severe tricuspid regurgitation. Chronic diastolic heart failure Hypertension Hyperlipidemia Right internal carotid artery stenosis Remote history of tobacco use Plan: Patient is higher risk given history of coronary artery disease with CABG, moderate aortic stenosis, moderate to severe tricuspid regurgitation, pulmonary hypertension however she is able to do 4 Mets of activity without any angina and she appears to be a reasonable risk for proposed surgery. would recommend continuing aspirin through surgery given her significant history of coronary artery disease with prior CABG. we will check chest x-ray for completeness sake however appears euvolemic on xam. continue home lisinopril 2.5 mg Hold eliquis 5 mg twice daily for cholecystectomy 2-D echo from yesterday reviewed and shows ejection fraction 50-55%, moderate aortic stenosis, moderate mitral regurgitation, moderate to severe tricuspid regurgitation with RVSP of 51. Objective - Vital Signs Vital signs: Vital Signs Temp 98.6 F 03/09/20 14:22 Pulse 106 H 03/09/20 14:22 Resp 16 03/09/20 14:22 BP 112/68 03/09/20 14:22 Pulse Ox 90 L 03/09/20 14:22 Intake & Output 03/08/20 03/09/20 03/09/20 18:59 06:59 18:59 Intake Total 0 1300 296 Output Total 0 Balance 0 1300 296 Weight 61.235 kg Intake: Intake, IV Titration 1300 Amount ACETAMINOPHEN IV (For NPO 100 ) 650 mg In Empty Bag 1 bag @ 400 mls/hr IVPB Q6H [facility] Rx#:[id number] Sodium Chloride 0.9% 1, 1200 000 ml @ 75 mls/hr IV . [id number] [facility] Rx#:[id number] Oral 0 296 Output: Urine 0 Other: Voiding Method Toilet Toilet Toilet # Voids 2 1 - Labs CBC & Chem 7: 03/09/20 11:22 03/09/20 11:22 Labs: Abnormal Lab Results - Last 24 Hours (Table) 03/09/20 03/09/20 Range/Units 11:22 11:22 WBC 21.0 H (3.8-10.6) k/uL Neutrophils # 18.7 H (1.3-7.7) k/uL Sodium 133 L (137-145) mmol/L BUN 28 H (7-17) mg/dL Glucose 118 H (74-99) mg/dL Total Bilirubin 1.4 H (0.2-1.3) mg/dL Total Protein 5.8 L (6.3-8.2) g/dL Albumin 3.2 L (3.5-5.0) g/dL Microbiology - Last 24 Hours (Table) 03/08/20 11:49 Blood Culture - Preliminary Blood No Growth after 24 hours
[2020-03-09] MEDS ORDERED: SODIUM CHLORIDE 0.9% 1,000 ML IV ONE (17:43)
--- NOTE | 2020-03-09 17:43 | XR ---
EXAMINATION TYPE: XR chest 1V portable DATE OF EXAM: 03/09/2020 COMPARISON: 01/17/2016 HISTORY: Short of breath TECHNIQUE: FINDINGS: Heart is enlarged. There is no gross heart failure. Costophrenic angles are fairly clear. T here are sternal wires. Bony thorax appears intact. IMPRESSION: Cardiomegaly. No acute lung disease. There is clearing of the heart failure and pleural f luid compared to old exam.
--- NOTE | 2020-03-09 17:49 | P.PN ---
Subjective Progress Note Date: 03/09/20 CHIEF COMPLAINT: Right upper quadrant abdominal pain HISTORY OF PRESENT ILLNESS: The patient is a 74 year old female who comes in with acute cholecystitis. She is on a blood thinner Eliquis. She reports poor appetite. No nausea and vomiting. No fevers or chills. She reports right upper quadrant abdominal pain is stable. REVIEW OF ORGAN SYSTEMS: No fevers or chills. No chest pain. PHYSICAL EXAM: VITALS: Reviewed CONSTITUTIONAL: Well developed and in no acute distress. EYES: Conjuctivae without sclera icterus. Pupils are equally round and reactive to light. Extraocular movements grossly intact. HEAD, EARS, NOSE, THROAT: Moist buccal mucosa. Head is atraumatic, normocephalic. Hears conversational speech. No nasal drainage. NECK: No JV distention. No thyroidomegaly. RESPIRATORY: Non-labored respirations and equal bilateral excursions. No gross wheezes. CARDIOVASCULAR: Extremities without moderate edema. Palpable 2+ radial pulses. ABDOMEN: Soft. Tender along the right upper quadrant. No peritonitis. MUSCULOSKELETAL: No clubbing cyanosis or edema. SKIN: Warm and well perfused with good skin turgor. NEUROLOGIC: Cranial nerves II through XII grossly intact. Sensation upper and extremities intact. No focal or lateralizing signs. PSYCH: Appropriate affect. Alert and oriented to person, place and time. Displays appropriate insight. CLINCAL LABS: Reviewed. WBC elevated over 24,000 down to 21,000. LFTs stable. ASSESSMENT: 1. Acute cholecystitis 2. Atrial fibrillation 3. History of myocardial infarction 4. Chronic anticoagulation PLAN: 1. Continue IV antibiotics 2. Await cardiology clearance. 3. Robotic cholecystectomy described pending cardiac clearance Objective - Vital Signs Vital signs: Vital Signs Temp 98.6 F 03/09/20 14:22 Pulse 106 H 03/09/20 14:22 Resp 16 03/09/20 14:22 BP 112/68 03/09/20 14:22 Pulse Ox 90 L 03/09/20 14:22 Intake & Output 03/08/20 03/09/20 03/09/20 18:59 06:59 18:59 Intake Total 0 1300 296 Output Total 0 Balance 0 1300 296 Weight 61.235 kg Intake: Intake, IV Titration 1300 Amount ACETAMINOPHEN IV (For NPO 100 ) 650 mg In Empty Bag 1 bag @ 400 mls/hr IVPB Q6H [facility] Rx#:[id number] Sodium Chloride 0.9% 1, 1200 000 ml @ 75 mls/hr IV . [id number] [facility] Rx#:[id number] Oral 0 296 Output: Urine 0 Other: Voiding Method Toilet Toilet Toilet # Voids 2 1 - Labs CBC & Chem 7: 03/09/20 11:22 03/09/20 11:22 Labs: Abnormal Lab Results - Last 24 Hours (Table) 03/09/20 03/09/20 Range/Units 11:22 11:22 WBC 21.0 H (3.8-10.6) k/uL Neutrophils # 18.7 H (1.3-7.7) k/uL Sodium 133 L (137-145) mmol/L BUN 28 H (7-17) mg/dL Glucose 118 H (74-99) mg/dL Total Bilirubin 1.4 H (0.2-1.3) mg/dL Total Protein 5.8 L (6.3-8.2) g/dL Albumin 3.2 L (3.5-5.0) g/dL Microbiology - Last 24 Hours (Table) 03/08/20 11:49 Blood Culture - Preliminary Blood No Growth after 24 hours Assessment and Plan (1) Leukocytosis Current Visit: Yes Status: Acute Code(s): D72.829 - ELEVATED WHITE BLOOD CELL COUNT, UNSPECIFIED SNOMED Code(s): 732344305 (2) Acute cholecystitis Current Visit: Yes Status: Acute Code(s): K81.0 - ACUTE CHOLECYSTITIS SNOMED Code(s): 44552635 (3) Atrial fibrillation with RVR Current Visit: Yes Status: Acute Code(s): I48.91 - UNSPECIFIED ATRIAL FIBRILLATION SNOMED Code(s): 399893604858102
[2020-03-09] MEDS: ONDANSETRON 4 MG/2 ML VIAL IVP PRN (21:33)
[2020-03-10] MEDS: SODIUM CHLORIDE 0.9% 1,000 ML IV SCH ×2 (00:27→11:12)
[2020-03-10] MEDS: PIPERACILLIN-TAZOBACTAM 3.375 GM in SODIUM CHLORIDE 0.9% 100 ML IVPB SCH ×3 (04:05→16:08)
[2020-03-10] MEDS: ONDANSETRON 4 MG/2 ML VIAL IVP PRN ×2 (05:55→15:56)
[2020-03-10] MEDS: metroNIDAZOLE-NS PMX 500 MG in SALINE 1 100ML.BAG IVPB SCH ×3 (05:55→16:20)
[2020-03-10 06:20] LABS: Basophils % (A) 0 %; Eosinophils # (A) 0.2 k/uL (0-0.7); Eosinophils % (A) 1 %; HCT 39.8 % (34.0-46.0); HGB 12.4 gm/dL (11.4-16.0); Hypochromasia Moderate; Lymphocytes # (A) 1.2 k/uL (1.0-4.8); Lymphocytes % (A) 7 %; MCH 30.5 pg (25.0-35.0); MCHC 31.1 g/dL (31.0-37.0); MCV 98.1 fL (80.0-100.0); Mean Platelet Volume 7.5; Monocytes # (A) 0.9 k/uL (0-1.0); Monocytes % (A) 5 %; Neutrophils % (A) 86 %; Platelet Count 269 k/uL (150-450); RBC 4.06 m/uL (3.80-5.40); WBC 18.6 k/uL (3.8-10.6)
--- NOTE | 2020-03-10 10:48 | P.PN ---
Subjective Progress Note Date: 03/10/20 This is a 74-year-old female who follows regularly with Dr. Shannan Champion in the office. She has a past medical history significant for coronary artery disease and prior bypass surgery in 2016, moderate mitral valve regurgitation, mild aortic stenosis, chronic systolic congestive heart failure, paroxysmal atrial fibrillation, hypertension, hyperlipidemia, remote history of nicotine dependence. Presented to the hospital with symptoms of right upper quadrant abdominal pain with associated nausea. Patient also had a temperature of 102.4. Her abdominal ultrasound revealed cholelithiasis and mild gallbladder wall thickening, correlate for cholecystitis. She is scheduled today to undergo laparoscopic cholecystectomy. Seen and examined this morning, continues to have abdominal pain in the right upper quadrant. Blood pressure 100/60 with a heart rate of 90, 91% on room air. White blood cell count 18.6, hemoglobin 12.4, platelet count 269. Objective - Vital Signs Vital signs: Vital Signs Temp 98.0 F 03/10/20 07:00 Pulse 93 03/10/20 07:00 Resp 17 03/10/20 07:00 BP 100/65 03/10/20 07:00 Pulse Ox 91 L 03/10/20 07:00 Intake & Output 03/09/20 03/10/20 03/10/20 18:59 06:59 18:59 Intake Total 592 2400 Balance 592 2400 Intake: Intake, IV Titration 2400 Amount Piperacillin-Tazobactam 3 100 .375 gm In Sodium Chloride 0.9% 100 ml @ 25 mls/hr IVPB Q8H [facility] Rx#: [id number] Sodium Chloride 0.9% 1, 1200 000 ml @ 75 mls/hr IV . [id number] [facility] Rx#:[id number] Sodium Chloride 0.9% 1, 1000 000 ml @ 999 mls/hr IV . Q1H1M [facility] Rx#:[id number] metroNIDAZOLE-NS PMX 500 100 mg In Saline 1 100ml.bag @ 100 mls/hr IVPB Q6HR [facility] Rx#:[id number] Oral 592 Other: Voiding Method Toilet Toilet Toilet # Voids 1 3 # Bowel Movements 1 - Exam PHYSICAL EXAMINATION: GENERAL: 74-year-old female in no acute distress at the time of my examination HEENT: Head is atraumatic, normocephalic. Pupils equal, round. Sclera anicteric. Conjunctiva are clear. Mucous membranes of the mouth are moist. Neck is supple. There is no elevated jugular venous pressure. No carotid bruit is heard. HEART EXAMINATION: Heart S1 and S2 irregularly irregular a grade 3/6 systolic murmur is heard CHEST EXAMINATION: Lungs are clear to auscultation and precussion. No chest wall tenderness is noted on palpation or with deep breathing. ABDOMEN: Soft, right upper quadrant tenderness. Bowel sounds are heard. No organomegaly noted. EXTREMITIES: 2+ peripheral pulses with no evidence of peripheral edema and no calf tenderness noted. NEUROLOGIC patient is awake, alert and oriented 3. . - Labs CBC & Chem 7: 03/10/20 06:02 03/09/20 11:22 Labs: Abnormal Lab Results - Last 24 Hours (Table) 03/09/20 03/09/20 03/10/20 Range/Units 11:22 11:22 06:02 WBC 21.0 H 18.6 H (3.8-10.6) k/uL Neutrophils # 18.7 H 16.0 H (1.3-7.7) k/uL Sodium 133 L (137-145) mmol/L BUN 28 H (7-17) mg/dL Glucose 118 H (74-99) mg/dL Total Bilirubin 1.4 H (0.2-1.3) mg/dL Total Protein 5.8 L (6.3-8.2) g/dL Albumin 3.2 L (3.5-5.0) g/dL Microbiology - Last 24 Hours (Table) 03/08/20 11:49 Blood Culture - Preliminary Blood No Growth after 24 hours Assessment and Plan Plan: Assessment and plan #1 abdominal pain with evidence of acute cholecystitis, patient scheduled today to undergo laparoscopic cholecystectomy #2 paroxysmal atrial fibrillation #3 known history of coronary artery disease with prior bypass surgery #4 valvular disease with moderate aortic stenosis, moderate to severe tricuspid regurg #5 chronic diastolic congestive heart failure #6 hypertension #7 hyperlipidemia #8 remote history of nicotine dependence Plan Patient was seen in consultation for preoperative evaluation over the weekend by Dr. Yoo. She is a higher risk given her history of coronary artery disease with bypass surgery, moderate aortic stenosis, and moderate to severe tricuspid regurg along with pulmonary hypertension. However patient was cleared for surgery. Her Eliquis is currently on hold, postoperatively we will need to resume this once cleared by surgery. We will continue to follow. DNP note has been reviewed, I agree with a documented findings and plan of care. Patient was seen and examined.
[2020-03-10] MEDS: METOPROLOL SUCCINATE (ER) 50 MG TAB.ER.24H PO SCH (10:52)
[2020-03-10 10:55] LABS: African American GFR (CKD) 83.6 (60.0-200.0); Albumin 3.5 g/dL (3.80-4.90); Albumin/Globulin Ratio 1.67 (1.60-3.17); Anion Gap 6.5 mmol/L (4.00-12.00); BUN/Creat Ratio 42.5 Ratio (12.00-20.00); Calcium 8.6 mg/dL (8.7-10.3); Carbon Dioxide 25.5 mmol/L (21.6-31.8); Globulin 2.1 g/dL (1.6-3.3); Non-African American GFR(CKD) 72.1 (60.0-200.0); Potassium 4.2 mmol/L (3.5-5.5); Total Bilirubin 0.8 mg/dL (0.2-1.2); Total Protein 5.6 g/dL (6.2-8.2)
[2020-03-10] MEDS: ASPIRIN 81 MG PO SCH (11:12)
[2020-03-10] MEDS ORDERED: LACTATED RINGERS 1,000 ML IV ONE (11:17)
[2020-03-10] MEDS ORDERED: INDOCYANINE GREEN 25 MG VIAL IV STA (11:33)
--- NOTE | 2020-03-10 11:35 | P.HPADDEND ---
H&P Addendum H&P Addendum Date: 03/10/20 Patient seen and evaluated. Benefits and risks robotic cholecystectomy described. White blood cell count moderately improved. Patient cleared per cardiology to proceed with cholecystectomy.
[2020-03-10] MEDS ORDERED: METOPROLOL TARTRATE 5 MG/5 ML VIAL IVP ONE (12:14)
[2020-03-10] MEDS ORDERED: DILTIAZEM DRIP BOLUS FROM BAG 1 MG SOLN IV ONE (12:59)
[2020-03-10] MEDS: DILTIAZEM 125 MG in SODIUM CHLORIDE 0.9% 100 ML IV SCH ×2 (13:14→20:17)
[2020-03-10] MEDS ORDERED: DILTIAZEM 5 MG/ML 5 ML VIAL IVP STA (13:45)
[2020-03-10] MEDS ORDERED: DILTIAZEM DRIP BOLUS FROM BAG 1 MG SOLN IV STA (14:15)
[2020-03-10] MEDS ORDERED: HEPARIN SODIUM,PORCINE 5,000 UNIT/ML 1 ML VIAL ONE (15:45)
--- NOTE | 2020-03-10 15:52 | P.PN ---
Progress Note - Text Progress Note Date: 03/10/20 In the preoperative area, patient went into atrial fibrillation with rapid ventricular response. Cardiology notified. Patient started on a Cardizem drip and Cardizem bolus between 5-15 mg with 10-15 mg grams drip started. Initial heart rate was 130s to 140s had improved to 70s to 90s after Cardizem drip and hemodynamically stable prior to continuing with surgery.
[2020-03-10] MEDS ORDERED: ROCURONIUM 10 MG/ML (10 ML VIAL) IV ONE (16:07)
[2020-03-10] MEDS ORDERED: SUCCINYLCHOLINE CHLORIDE 100 MG/5 ML SYR IV ONE (16:07)
[2020-03-10] MEDS ORDERED: fentaNYL (PF) 50 MCG/ML 2 ML AMP ONE (16:07)
[2020-03-10] MEDS ORDERED: MIDAZOLAM 2 MG/2 ML VIAL ONE (16:07)
[2020-03-10] MEDS ORDERED: GLYCOPYRROLATE 0.2 MG/ML 2 ML VIAL ONE (16:07)
[2020-03-10] MEDS ORDERED: INDOCYANINE GREEN 25 MG VIAL IV ONE (16:07)
[2020-03-10] MEDS ORDERED: ETOMIDATE 2 MG/ML 10 ML VIAL ONE (16:07)
[2020-03-10] MEDS ORDERED: DEXAMETHASONE SOD PHOSPHATE 10 MG/ML 1 ML VIAL ONE (16:07)
[2020-03-10] MEDS ORDERED: POTASSIUM PHOSPHATE IV ONE (16:07)
[2020-03-10] MEDS ORDERED: LIDOCAINE 1%-EPI 1:100,000 20 ML VIAL SQ ONE (16:41)
[2020-03-10] MEDS ORDERED: NALOXONE 0.4 MG/ML 1 ML VIAL IV PRN (17:34)
--- NOTE | 2020-03-10 17:34 | P.OP ---
Date of Procedure: 03/10/20 Description of Procedure: SURGEON: JORDYN KHAN MD PREOPERATIVE DIAGNOSES: 1. Acute cholecystitis with symptomatic gallstones 2. Right upper quadrant abdominal pain 3. History of myocardial infarction 4. Atrial fibrillation with rapid ventricular response 5. Chronic anticoagulation 6. Coronary artery disease 7. History of CABG POSTOPERATIVE DIAGNOSES: 1. Acute cholecystitis with symptomatic gallstones 2. Right upper quadrant abdominal pain 3. History of myocardial infarction 4. Atrial fibrillation with rapid ventricular response 5. Chronic anticoagulation 6. Coronary artery disease 7. History of CABG 8. Hydrops cholecystitis OPERATION: Robotic-assisted da Estelle Xi laparoscopic cholecystectomy, multiport with FIREFLY ESTIMATED BLOOD LOSS: 5 mL. SPECIMENS REMOVED: Gallbladder. COMPLICATIONS: None. OPERATIVE FINDINGS: 1. Hydrops gallbladder, right upper quadrant with thickened gallbladder wall consistent with acute cholecystitis INDICATIONS: The patient is a 74-year-old female who presents with acute cholecystitis. Patient presented with elevated risks due to atrial fibrillation with recent rapid ventricular response including history of myocardial infarction. Robotic assisted laparoscopic approach was described. Benefits and risks of the procedure including but not limited to bleeding, infection, injury to the biliary tree was described. Informed consent was obtained. DESCRIPTION OF PROCEDURE: Patient was brought to the operating room, placed in supine position. After general induction, the abdomen had been prepped and draped in standard sterile fashion. The robotic da Estelle XI system was primed. After a timeout protocol was performed, the patient had been prepped and draped in standard sterile fashion. The patient was injected with indocyanine green. A 5 mm 0 degrees laparoscopic trocar entry was performed along the left upper quadrant. The abdomen insufflated to 15 mmHg pressure which was tolerated well. Diagnostic laparoscopy demonstrated no injury to bowel viscera or mesentery. The liver surface was unremarkable. Next, two 8 mm robotic ports were placed along the right upper abdomen. The camera 8-mm port was maintained along the epigastrium. Another 8 mm port was placed along the left upper abdominal wall after exchanging the 5 mm port. Please note that the ports were placed at least 10 to 15 cm away from the target anatomy of the gallbladder. The robot was docked along the left lateral abdomen. The patient was repositioned in reverse Trendelenburg position. Using a grasper for arm 3, a grasper for arm 4, including hook cautery for arm 1, the robotic system was docked and primed as described. Instruments were interchanged by the social science research assistant including hook cautery, Bovie cautery and clip appliers. I had sat at the console. The gallbladder was moderately distended. Next attention was brought to the infundibulum and cystic structures. The infundibulum and cystic duct were dissected free from surrounding tissues. The cystic duct was isolated. FIREFLY was used to identify the cystic artery and cystic structures. A critical view of safety was obtained. Large PLASTIC clips were used throughout the entire case. Using a clip grit blaster, 2 clips were placed at the junction of the infundibulum and cystic duct. The cystic duct was divided between clips. Next, the cystic artery was similarly clipped and cauterized. Electro-Bovie cautery was used to remove the gallbladder from the hepatic fossa. Hemostasis was checked and found to be adequate. The robot was undocked. I re-scrubbed into the case. Using a 10 mm Endo Catch bag via the left upper quadrant incision, the specimen was removed from the abdominal cavity after widening the fascia. The left upper quadrant port was closed using 0 Vicryl and Familia Rosado. All pneumoperitoneum instruments were evacuated from the abdominal cavity. The incisions were reapproximated using 4-0 Monocryl in an interrupted subcuticular fashion. Please note along the trocar sites, local anesthetic was placed as a field block prior to insertion of all instruments. Liquid glue was applied to the skin. At the end of the procedure needle, sponge, and instrument count had been verified correct by the surgical pathologist. The patient was transferred to postanesthesia care unit in stable condition. Intraoperative films were shared with the patient's family.
[2020-03-10] MEDS: ACETAMINOPHEN TAB 325 MG TAB PO SCH (19:03)
--- NOTE | 2020-03-10 22:34 | P.CONS ---
History of Present Illness - Reason for Consult Consult date: 03/10/20 - History of Present Illness 74-year-old white female asked to see consultation preop for cholecystectomy right upper quadrant abdominal pain past few days and was admitted to the hospital currently awaiting surgery undergone cardiac clearance labs are stable Past Medical History Past Medical History: Atrial Fibrillation, Coronary Artery Disease (CAD), Hyperlipidemia, Hypertension, Myocardial Infarction ([place]) Additional Past Medical History / Comment(s): , murmur years ago, ulcerative colitis, dificulty swallowing large pills. Last Myocardial Infarction Date:: 2015 History of Any Multi-Drug Resistant Organisms: None Reported Past Surgical History: Coronary Bypass/CABG, Tubal Ligation Past Anesthesia/Blood Transfusion Reactions: No Reported Reaction Past Psychological History: No Psychological Hx Reported Smoking Status: Never smoker Past Alcohol Use History: Occasional Past Drug Use History: None Reported - Past Family History Mother Family Medical History: Dementia Father Family Medical History: Myocardial Infarction ([place]) Medications and Allergies Home Medications Medication Instructions Recorded Confirmed Type Apixaban [Eliquis] 5 mg PO BID 03/08/20 03/08/20 History Aspirin 81 mg PO DAILY@1200 03/08/20 03/08/20 History Metoprolol Succinate (ER) [Toprol 100 mg PO DAILY@1200 03/08/20 03/08/20 History XL] Spironolactone [Aldactone] 25 mg PO DAILY@1200 03/08/20 03/08/20 History lisinopriL [Zestril] 2.5 mg PO QAM 03/08/20 03/08/20 History Allergies Allergy/AdvReac Type Severity Reaction Status Date / Time No Known Allergies Allergy Verified 03/08/20 12:13 Physical Exam Osteopathic Statement: *. No significant issues noted on an osteopathic structural exam other than those noted in the History and Physical/Consult. Vitals: Vital Signs Temp Pulse Pulse Pulse Resp BP Pulse Ox 03/10/20 20:00 97.8 F 76 16 98/61 94 L 03/10/20 18:02 93 85 16 106/58 93 L 03/10/20 17:48 95 84 16 118/53 94 L 03/10/20 17:33 97 100 16 133/74 96 03/10/20 15:17 86 129/57 03/10/20 14:41 85 18 144/66 96 03/10/20 14:24 85 18 155/61 95 03/10/20 14:17 95 18 139/66 95 03/10/20 14:05 97 18 147/70 95 03/10/20 13:55 96 18 132/66 95 03/10/20 13:47 104 H 18 139/63 93 L 03/10/20 13:29 106 H 18 148/75 96 03/10/20 13:19 111 H 18 148/73 97 03/10/20 13:14 105 H 18 137/65 95 03/10/20 11:19 98 F 114 H 18 148/78 96 03/10/20 10:54 103 H 122/72 03/10/20 07:00 98.0 F 93 17 100/65 91 L 03/10/20 01:16 97.7 F 100 20 91/60 93 L 03/10/20 00:00 18 Intake and Output 03/10/20 03/10/20 03/10/20 06:59 14:59 22:59 Intake Total 800 300 910.166 Output Total 5 Balance 800 300 905.166 Intake: IV 300 700 Intake, IV Titration 800 10.166 Amount Diltiazem 125 mg In 10.166 Sodium Chloride 0.9% 100 ml @ 10 MG/HR 10 mls/hr IV .[id number] [facility] Rx#: [id number] Piperacillin-Tazobactam 3 100 .375 gm In Sodium Chloride 0.9% 100 ml @ 25 mls/hr IVPB Q8H [facility] Rx#: [id number] Sodium Chloride 0.9% 1, 600 000 ml @ 75 mls/hr IV . [id number] [facility] Rx#:[id number] metroNIDAZOLE-NS PMX 500 100 mg In Saline 1 100ml.bag @ 100 mls/hr IVPB Q6HR [facility] Rx#:[id number] Oral 200 Output: Estimated Blood Loss 5 Other: Voiding Method Toilet Toilet # Voids 3 0 # Bowel Movements 1 0 GENERAL: This is a -74 year-old in getting in my dictation. Silently complains distress at the time of examination. Pleasant and cooperative. HEENT: Head is atraumatic, normocephalic. Pupils are equal, round, and reactive to light. Sclerae anicteric. Conjunctivae are clear. Mucus membranes of the mouth are moist. Neck is supple. RESPIRATORY: Clear to auscultation. No wheezes, rales, or rhonchi. No use of accessory muscles. Patient maintaining oxygen saturation greater than 92%. No chest wall tenderness is noted on palpation or with deep breathing. CARDIOVASCULAR: irRegular rate and rhythm. GASTROINTESTINAL: No distention noted. Abdomen soft and round. Normal active bowel sounds auscultated x 4 quadrants. she has pain or tenderness noted upon palpation right upper quadrant INTEGUMENTARY: No cyanosis. No jaundice. No rashes noted. No cellulitis noted. EXTREMITIES: 2+ peripheral pulses. No evidence of peripheral edema. No calf tenderness noted. NEUROLOGIC: Cranial nerves II-XII intact. PSYCHIATRIC: Awake, alert, and oriented X 3. Appropriate affect. Intact judgement and insight. Results CBC & Chem 7: 03/10/20 06:02 03/10/20 06:02 Labs: Abnormal Lab Results - Last 24 Hours (Table) 03/10/20 03/10/20 Range/Units 06:02 06:02 WBC 18.6 H (3.8-10.6) k/uL Neutrophils # 16.0 H (1.3-7.7) k/uL BUN 34.0 H (9.0-27.0) mg/dL BUN/Creatinine Ratio 42.50 H (12.00-20.00) Ratio Calcium 8.6 L (8.7-10.3) mg/dL Total Protein 5.6 L (6.2-8.2) g/dL Albumin 3.50 L (3.80-4.90) g/dL Microbiology - Last 24 Hours (Table) 03/08/20 11:49 Blood Culture - Preliminary Blood No Growth after 48 hours Assessment and Plan (1) Abdominal pain Current Visit: Yes Status: Acute Code(s): R10.9 - UNSPECIFIED ABDOMINAL PAIN SNOMED Code(s): 67603409 (2) Acute cholecystitis Current Visit: Yes Status: Acute Code(s): K81.0 - ACUTE CHOLECYSTITIS SNOMED Code(s): 83768054 (3) Atrial fibrillation with RVR Current Visit: Yes Status: Acute Code(s): I48.91 - UNSPECIFIED ATRIAL FIBRILLATION SNOMED Code(s): 872210953127507 (4) Leukocytosis Current Visit: Yes Status: Acute Code(s): D72.829 - ELEVATED WHITE BLOOD CELL COUNT, UNSPECIFIED SNOMED Code(s): 418758446 (5) Hyperlipemia Current Visit: No Status: Acute Code(s): E78.5 - HYPERLIPIDEMIA, UNSPECIFIED SNOMED Code(s): 05852053 Plan: Is medically cleared for surgery today. Continue postsurgical care will be DVT prophylaxis and pain control early ambulation. Patient will be discharged surgically ready. Thank you for allowing me to participate in this patient's care.
[2020-03-11] MEDS: metroNIDAZOLE-NS PMX 500 MG in SALINE 1 100ML.BAG IVPB SCH ×2 (00:30→05:49)
[2020-03-11] MEDS: ACETAMINOPHEN TAB 325 MG TAB PO SCH ×3 (00:30→14:08)
[2020-03-11] MEDS: SODIUM CHLORIDE 0.9% 1,000 ML IV SCH (02:29)
[2020-03-11] MEDS: PIPERACILLIN-TAZOBACTAM 3.375 GM in SODIUM CHLORIDE 0.9% 100 ML IVPB SCH ×2 (04:25→12:12)
[2020-03-11 07:50] LABS: Basophils % (A) 0 %; Eosinophils # (A) 0.1 k/uL (0-0.7); Eosinophils % (A) 0 %; HCT 38.8 % (34.0-46.0); HGB 12.2 gm/dL (11.4-16.0); Hypochromasia Slight; Lymphocytes # (A) 0.6 k/uL (1.0-4.8); Lymphocytes % (A) 5 %; MCH 30.5 pg (25.0-35.0); MCHC 31.4 g/dL (31.0-37.0); MCV 97.2 fL (80.0-100.0); Mean Platelet Volume 8.3; Monocytes # (A) 0.5 k/uL (0-1.0); Monocytes % (A) 3 %; Neutrophils # (A) 12.6 k/uL (1.3-7.7); Neutrophils % (A) 91 %; Platelet Count 326 k/uL (150-450); RBC 3.99 m/uL (3.80-5.40); WBC 13.8 k/uL (3.8-10.6)
[2020-03-11 08:00] LABS: ALT 20 U/L (4-34); AST 30 U/L (14-36); African American GFR (CKD) >90 (>60 ml/min/1.73 sqM); Alkaline Phosphatase 83 U/L (38-126); Anion Gap 11 mmol/L; Blood Urea Nitrogen 37 mg/dL (7-17); Calcium 8.6 mg/dL (8.4-10.2); Carbon Dioxide 18 mmol/L (22-30); Chloride 107 mmol/L (98-107); Glucose 126 mg/dL (74-99); Magnesium 1.9 mg/dL (1.6-2.3); Non-African American GFR(CKD) 88 (>60 ml/min/1.73 sqM); Potassium 4.4 mmol/L (3.5-5.1); Sodium 136 mmol/L (137-145); Total Bilirubin 0.7 mg/dL (0.2-1.3); Total Protein 5.9 g/dL (6.3-8.2)
[2020-03-11] MEDS ORDERED: MAGNESIUM SULFATE-D5W PMX 1 GM in DEXTROSE/WATER 1 100ML.BAG IVPB ONE (09:00)
[2020-03-11] MEDS ORDERED: ENOXAPARIN 40 MG/0.4 ML SYRINGE SQ SCH (09:00)
--- NOTE | 2020-03-11 10:13 | P.PN ---
Subjective Progress Note Date: 03/11/20 This is a 74-year-old female postop day 1, laparoscopic cholecystectomy, atrial fibrillation with RVR status post Cardizem drip and multiple other medical issues , tolerated procedure well. Maintained on beta vernon,Telemetry reporting A. fib, heart rate currently 110. Anticoagulated on Lovenox. Magnes ium 1.9. Tolerating low fat diet with no nausea vomiting or diarrhea. Abdominal pain controlled. Afebrile, WBC trending down, 13.8. Preliminary blood cultures no growth at 48 hours. Continues on Zosyn. Denies cough congestion or shortness of breath. Denies chest pain, palpitations. PHYSICAL EXAM: VITAL SIGNS: [As below] GENERAL: Alert and oriented 3, Sitting up in bed, no acute distress HEENT: Conjunctivae normal. eyes normal. Oral mucosa moist NECK: Supple, No JVD. No thyroid enlargement. CARDIOVASCULAR: S1, S2 regular.. No murmur RESPIRATION: Breath sounds diminished in the bases. No rhonchi or crackles. No bronchial breathing. ABDOMEN: Soft, status post surgery. Laparoscopic sites clean, dry, well approximated. No guarding. Positive.bowel sounds. LEGS: No edema. no swelling . No calf tenderness. NERVOUS SYSTEM: Cranial N 2-12 grossly normal. Moves all 4 limbs. Diffuse weakness No focal deficits. Strength and sensation grossly intact.. Skin: Warm and dry, no cyanosis, no jaundice, no rash . Assessment: Acute abdominal pain, secondary to acute cholecystitis with gallstones Acute cholecystitis, status post laparoscopic cholecystectomy Atrial fibrillation with RVR status post Cardizem drip CAD, history of SD Leukocytosis, improving postoperatively Hyperlipidemia Hyponatremia, improving Plan: Continue current medication regime ,monitoring and symptomatic treatment. Aggressive pulmonary toileting with incentive spirometer reinforced. Ant iarrhythmics as per cardiology. Anticoagulation as per cardiology/surgery. Increase ambulation as tolerated. Medically cleared for discharge. Follow-up with PCP, Dr. Cisneros in 1 week. The impression and plan of care has been dictated as directed. : I performed a history and examination of this patient, discussed the same with the dictator. I agree with the dictator's note ,documented as a scribe. Any additional findings or plans will be noted. Objective - Vital Signs Vital signs: Vital Signs Temp 96.9 F L 03/11/20 08:00 Pulse 78 10/13/20 08:00 Resp 17 03/11/20 08:00 BP 132/76 03/11/20 08:00 Pulse Ox 92 L 03/11/20 08:00 Intake & Output 03/10/20 03/11/20 03/11/20 18:59 06:59 18:59 Intake Total 1000 210.166 120 Output Total 5 600 Balance 995 -389.834 120 Weight 75 kg Intake: IV 1000 Intake, IV Titration 10.166 Amount Diltiazem 125 mg In 10.166 Sodium Chloride 0.9% 100 ml @ 10 MG/HR 10 mls/hr IV .[id number] [facility] Rx#: [id number] Oral 200 120 Output: Urine 600 Estimated Blood Loss 5 Other: Voiding Method Toilet Toilet # Voids 0 1 # Bowel Movements 0 - Labs CBC & Chem 7: 03/11/20 06:27 03/11/20 06:27 Labs: Abnormal Lab Results - Last 24 Hours (Table) 03/10/20 03/11/20 03/11/20 Range/Units 06:02 06:27 06:27 WBC 13.8 H (3.8-10.6) k/uL Neutrophils # 12.6 H (1.3-7.7) k/uL Lymphocytes # 0.6 L (1.0-4.8) k/uL Sodium 136 L (137-145) mmol/L Carbon Dioxide 18 L (22-30) mmol/L BUN 34.0 H 37 H (9.0-27.0) mg/dL BUN/Creatinine Ratio 42.50 H (12.00-20.00) Ratio Glucose 126 H (74-99) mg/dL Calcium 8.6 L (8.7-10.3) mg/dL Total Protein 5.6 L 5.9 L (6.2-8.2) g/dL Albumin 3.50 L 3.0 L (3.80-4.90) g/dL Microbiology - Last 24 Hours (Table) 03/08/20 11:49 Blood Culture - Preliminary Blood No Growth after 48 hours
--- NOTE | 2020-03-11 11:42 | P.PN ---
Subjective Progress Note Date: 03/11/20 CHIEF COMPLAINT: A. fib HISTORY OF PRESENT ILLNESS: Patient is status post robotic-assisted laparoscopic cholecystectomy with Dr. Sterling. postop day #1. Patient denies chest pain or pressure. Denies shortness of breath. She remains in atrial fibrillation. Beta vernon was increased yesterday. Heart rate in the low 100s this morning. PHYSICAL EXAM: VITAL SIGNS: Reviewed. GENERAL: Well-developed in no acute distress. NECK: Supple. No JVD or thyromegaly LUNGS: Respirations even and unlabored. Lungs essentially clear to auscultation bilaterally. HEART: Irregular rate and rhythm. S1 and S2 heard. EXTREMITIES: Normal range of motion. No clubbing or cyanosis. Peripheral pulses intact. No lower extremity edema ASSESSMENT: #1 Acute cholecystitis #2 paroxysmal atrial fibrillation #3 known history of coronary artery disease with prior bypass surgery #4 valvular disease with moderate aortic stenosis, moderate to severe tricuspid regurg #5 chronic systolic congestive heart failure, repeat echo pending #6 hypertension #7 hyperlipidemia #8 remote history of nicotine dependence PLAN: Continue current dose of metoprolol. Monitor telemetry. Resume Eliquis when cleared by surgery Patient may be discharged home today from a cardiac perspective. Patient to follow up outpatient. Nurse practitioner note has been reviewed by physician. Signing provider agrees with the documented findings, assessment, and plan of care. Objective - Vital Signs Vital signs: Vital Signs Temp 96.9 F L 03/11/20 08:00 Pulse 78 03/11/20 08:00 Resp 17 03/11/20 08:00 BP 132/76 03/11/20 08:00 Pulse Ox 92 L 03/11/20 08:00 Intake & Output 03/10/20 03/11/20 03/11/20 18:59 06:59 18:59 Intake Total 1000 210.166 120 Output Total 5 600 Balance 995 -389.834 120 Weight 75 kg Intake: IV 1000 Intake, IV Titration 10.166 Amount Diltiazem 125 mg In 10.166 Sodium Chloride 0.9% 100 ml @ 10 MG/HR 10 mls/hr IV .[id number] [facility] Rx#: [id number] Oral 200 120 Output: Urine 600 Estimated Blood Loss 5 Other: Voiding Method Toilet Toilet Toilet # Voids 0 1 # Bowel Movements 0 - Labs CBC & Chem 7: 03/11/20 06:27 03/11/20 06:27 Labs: Abnormal Lab Results - Last 24 Hours (Table) 03/11/20 03/11/20 Range/Units 06:27 06:27 WBC 13.8 H (3.8-10.6) k/uL Neutrophils # 12.6 H (1.3-7.7) k/uL Lymphocytes # 0.6 L (1.0-4.8) k/uL Sodium 136 L (137-145) mmol/L Carbon Dioxide 18 L (22-30) mmol/L BUN 37 H (7-17) mg/dL Glucose 126 H (74-99) mg/dL Total Protein 5.9 L (6.3-8.2) g/dL Albumin 3.0 L (3.5-5.0) g/dL Microbiology - Last 24 Hours (Table) 03/08/20 11:49 Blood Culture - Preliminary Blood No Growth after 48 hours
--- NOTE | 2020-03-11 12:00 | P.DS ---
<Nicole Sewell - Last Filed: 03/11/20 11:55> Providers Expected date of discharge: 03/11/20 Hospital Course: Discharge diagnosis 1. Acute cholecystitis with symptomatic gallstones 2. Right upper quadrant abdominal pain 3. History of myocardial infarction 4. Atrial fibrillation with rapid ventricular response 5. Chronic anticoagulation 6. Coronary artery disease 7. History of CABG 8. Hydrops cholecystitis 9. Hypomagnesemia Hospital course The patient is a 74 year old female who comes in with 1 day history of moderate right quadrant abdominal pain after eating ice cream last night. She reports persistent right upper back pain. She reports pre-existing bilateral upper abdom inal pain including moderate severe right upper back pain. Ultrasound of the gallbladder demonstrated multiple gallstones, thickened gallbladder wall 0.4 cm. Patient is status post Robotic-assisted da Estelle Xi laparoscopic cholecystectomy. Patient did tolerate surgery well. She did require to be placed on Cardizem drip prior to surgery for atrial fibrillation with rapid ventricular response. Heart rate is better controlled. She's been followed closely by cardiology. They have placed her on metoprolol. Cardiology has cleared patient for discharge. Patient is tolerating diet. She has been up and ambulating. She is stable for discharge. Physician Glass Inspector note has been reviewed by physician. Signing provider agrees with the documented findings, assessment, and plan of care. Patient Condition at Discharge: Stable Plan - Discharge Summary Discharge Rx Participant: Yes New Discharge Prescriptions: New Metoprolol Succinate (ER) [Toprol XL] 150 mg PO DAILY@1200 #90 tab.er.24h Acetaminophen Tab [Tylenol Tab] 650 mg PO Q4H PRN #30 tablet PRN Reason: Pain Continue Aspirin 81 mg PO DAILY@1200 lisinopriL [Zestril] 2.5 mg PO QAM Apixaban [Eliquis] 5 mg PO BID #0 Discontinued Metoprolol Succinate (ER) [Toprol XL] 100 mg PO DAILY@1200 No Action Spironolactone [Aldactone] 25 mg PO DAILY@1200 Discharge Medication List Aspirin 81 mg PO DAILY@1200 03/08/20 [History] Spironolactone [Aldactone] 25 mg PO DAILY@1200 03/08/20 [History] lisinopriL [Zestril] 2.5 mg PO QAM 03/08/20 [History] Acetaminophen Tab [Tylenol Tab] 650 mg PO Q4H PRN #30 tablet 03/11/20 [Rx] Apixaban [Eliquis] 5 mg PO BID #0 03/11/20 [Rx] Metoprolol Succinate (ER) [Toprol XL] 150 mg PO DAILY@1200 #90 tab.er.24h 03/11/20 [Rx] Follow up Appointment(s)/Referral(s): Stefan Cisneros DO [Primary Care Provider] - 03/18/20 2:10 pm Justina Sterling MD [STAFF PHYSICIAN] - 03/18/20 10:40 am Patient Instructions/Handouts: *Surgery [facility] - Laparoscopic Cholecystectomy Discharge Instructions, Low Fat Diet (DC) Activity/Diet/Wound Care/Special Instructions: Aldactone as per cardiology. Wear abdominal binder at all times for comfort. No lifting over 4 pounds in 4 weeks Apr 08. May shower. No bath tub soaks for two weeks until Mar 25 Avoid steak, tough meats and seeds such as raspberry seeds. Use ice along incisions for the today to prevent swelling. Diet low-fat Ok to Resume Eliquis on 03/13/20, Discharge Disposition: HOME SELF-CARE <Justina Sterling - Last Filed: 03/11/20 18:23> Providers Date of admission: 03/08/20 12:09 Attending physician: Justina Sterling Consults: 03/08/20 12:07 Consult Physician Stat Consulting Provider: Jacob Nieves Consult Reason/Comments: A. fib with RVR Do you want consulting provider notified?: Yes 03/08/20 12:08 Consult Physician Stat Consulting Provider: Justina Sterling Consult Reason/Comments: Acute cholecystitis Do you want consulting provider notified?: Yes 03/10/20 09:42 Consult Physician Routine Consulting Provider: Stefan Cisneros Consult Reason/Comments: known Do you want consulting provider notified?: Already Contacted Primary care physician: Stefan Cisneros - Discharge Diagnosis(es) (1) Leukocytosis Status: Acute (2) Acute cholecystitis Status: Acute (3) Atrial fibrillation with RVR Status: Acute Hospital Course: Patient seen and evaluated with above. Abdominal pain has improved. Features were consistent with acute cholecystitis without rupture. Surgery was uncomplicated. May resume blood thinner at least for 72 hours following surgery otherwise for March 13. Discharge instructions also reviewed.
[2020-03-11] MEDS: ASPIRIN 81 MG PO SCH (12:13)
[2020-03-11] MEDS: METOPROLOL SUCCINATE (ER) 50 MG TAB.ER.24H PO SCH (12:15)
[2020-03-11 12:21] VITALS: BP 135/80; RESP 19; TEMP 97.6
[2020-03-11 15:08] VITALS: PULSE 78
--- NOTE | 2020-03-12 13:06 | ECHOF ---
Referral Reason:LVF MEASUREMENTS -------- HEIGHT: 157.5 cm WEIGHT: 61.2 kg BP: 101/58 RVIDd: 2.7 cm (< 3.3) IVSd: 1.5 cm (0.6 - 1.1) LVIDd: 4.1 cm (3.9 - 5.3) LVPWd: 1.8 cm (0.6 - 1.1) IVSs: 1.7 cm LVIDs: 3.0 cm LVPWs: 1.6 cm LAESV Index (A-L): 37.62 ml/m Ao Diam: 3.3 cm (2.0 - 3.7) AV Cusp: 0.9 cm (1.5 - 2.6) MV EXCURSION: 20.130 mm (> 18.000) MV EF SLOPE: 146 mm/s (70 - 150) EPSS: 0.6 cm AV maxP.02 mmHg AV meanP.80 mmHg RAP: 5.00 mmHg RVSP: 51.87 mmHg FINDINGS -------- Atrial fibrillation. This was a technically adequate study. The left ventricular size is normal. There is moderate concentric left ventricular hypertrophy. O verall left ventricular systolic function is low-normal with, an EF between 50 - 55 %. Left ventric ular fillimg pressure cannot be estimated due to Atrial fibrillation. Septal wall motion is delayed and consistent with prior cardiac surgery. The right ventricle is normal in size. LA is moderately dilated 34-39 ml/m2 The right atrium is mildly enlarged. Interatrial and interventricular septum intact. There is moderate aortic valve sclerosis. There is moderate aortic stenosis present. Peak/mean gra dient across the Aortic Valve is 21.02mmHg / 12.80mmHg. Moderate mitral annular calcification present. Moderate mitral regurgitation is present. Moderate to severe tricuspid regurgitation present. There is moderate to severe pulmonary hypertens ion. The right ventricular systolic pressure, as measured by Doppler, is 51.87mmHg. There is no pulmonic regurgitation present. The aortic root size is normal. IVC Not well visulized. There is no pericardial effusion. CONCLUSIONS -------- 1. The left ventricular size is normal. 2. There is moderate concentric left ventricular hypertrophy. 3. Overall left ventricular systolic function is low-normal with, an EF between 50 - 55 %. 4. Left ventricular fillimg pressure cannot be estimated due to Atrial fibrillation. 5. LA is moderately dilated 34-39 ml/m2 6. The right atrium is mildly enlarged. 7. There is moderate aortic stenosis present. 8. Peak/mean gradient across the Aortic Valve is 21.02mmHg / 12.80mmHg. 9. Moderate mitral annular calcification present. 10. Moderate mitral regurgitation is present. 11. Moderate to severe tricuspid regurgitation present. 12. There is moderate to severe pulmonary hypertension. 13. The right ventricular systolic pressure, as measured by Doppler, is 51.87mmHg. PACKAGE CRIMPER: Alycia Varela RDCS
== END 2020-03-11 14:55 | disposition home or self-care (01) | DRG 418 ==
LOC: EC 09:31 → 4SSUR 12:09 → 3SCARD 03-10 16:37
PROVIDERS: ADMIT Surgery Plastic and Reconstructive Surgery; ATTEND Surgery Plastic and Reconstructive Surgery
PROC: 0FT44ZZ Resection of Gallbladder, Percutaneous Endoscopic Approach (ICD-10-PCS; principal; 2020-03-10 08:40)
PROC: 8E0W4CZ Robotic Assisted Procedure of Trunk Region, Percutaneous Endoscopic Approach (ICD-10-PCS; principal; 2020-03-10 08:40)
DX: K80.00 Calculus of gallbladder with acute cholecystitis without obstruction (principal); K51.90 Ulcerative colitis, unspecified, without complications; I50.42 Chronic combined systolic (congestive) and diastolic (congestive) heart failure; I42.9 Cardiomyopathy, unspecified; E87.1 Hypo-osmolality and hyponatremia; K82.1 Hydrops of gallbladder; I11.0 Hypertensive heart disease with heart failure; I48.0 Paroxysmal atrial fibrillation; I25.10 Atherosclerotic heart disease of native coronary artery without angina pectoris; E83.42 Hypomagnesemia; I08.3 Combined rheumatic disorders of mitral, aortic and tricuspid valves; I65.21 Occlusion and stenosis of right carotid artery; E78.5 Hyperlipidemia, unspecified; F32.9 Major depressive disorder, single episode, unspecified; Z95.1 Presence of aortocoronary bypass graft; Z79.01 Long term (current) use of anticoagulants; I25.2 Old myocardial infarction; Z79.82 Long term (current) use of aspirin; Z79.899 Other long term (current) drug therapy; Z87.891 Personal history of nicotine dependence; Z82.49 Family history of ischemic heart disease and other diseases of the circulatory system; Z81.8 Family history of other mental and behavioral disorders; Z98.51 Tubal ligation status
CPT/HCPCS: 36415; 71045; 76705; 80053; 81001; 83605; 83690; 83735; 84484; 85025; 87040; 88304; 93005; 93306; 96361; 96365; 96375; 99285